=== PATIENT | male | born 1965 | race African-American/Black ===

== ENCOUNTER 2024-09-18 01:12 | Day surgery (SDC) | payer OTHER, SELFPAY ==
[2024-09-12 15:04] VITALS: BMI 32.1
[2024-09-18 08:06] VITALS: BP 109/90; PULSE 84; RESP 18; TEMP 36.3; O2SAT 100
[2024-09-18] MEDS: LACTATED RINGERS 1,000 ML 150 ML IV CONT (08:15)
[2024-09-18 08:23] LABS: Glucose Point of Care 67 mg/dl (65-105)
[2024-09-18] MEDS: DEXTROSE 50% 25 GM/50 ML SYRINGE IV PUSH (08:25)
--- NOTE | 2024-09-18 08:34 | P.PNAN_ITS ---
Anes - Initial Pre Proc Eval Procedure: Operation Date: 09/18/24 09:00 Proposed Procedures p Colonoscopy - Luis Villalobos DO Date/Time: 09/18/24 08:34 Surgeon: Luis Villalobos DO Pre Op Diagnosis: + FIT Patient Data Age: 59 Gender: M Height: 1.7 m Weight: 88.6 kg Last Vital Signs Temp 36.3 C L 09/18/24 08:06 Pulse 84 09/18/24 08:06 Resp 18 09/18/24 08:06 BP 109/90 09/18/24 08:06 Pulse Ox 100 09/18/24 08:06 O2 Del Method Room Air 09/18/24 08:06 Allergies Allergy/AdvReac Type Severity Reaction Status Date / Time No Known Allergies Allergy Verified 09/18/24 08:05 Home Medications ?Medication ?Instructions ?Recorded ?Confirmed ?Type amlodipine 10 mg tablet 10 mg PO DAILY 09/12/24 09/18/24 History aspirin 81 mg tablet 81 mg PO DAILY 09/12/24 09/18/24 History chlorthalidone 25 mg tablet 25 mg PO DAILY 09/12/24 09/18/24 History empagliflozin 10 mg tablet 10 mg PO DAILY 09/12/24 09/18/24 History lisinopril 20 mg tablet 20 mg PO DAILY 09/12/24 09/18/24 History Laboratory Tests 09/18/24 08:14 POC Capillary Glucose 67 mg/dl (65-105) Patient hx anesthesia problems: none Family hx anesthesia problems: none Results Review: All pre-operative results and documents have been reviewed as part of the pre- operative evaluation. [facility] Past Medical History Medical History (Updated 09/18/24 @ 08:35 by Dinesh Mullins MD) Obesity CKD (chronic kidney disease) Diabetes Social History Social History Smoking status: Unknown if ever smoked Alcohol intake: unknown Substance use: unknown Living arrangements: incarcerated Anes - Eval Final PreProcedure Day of Procedure 09/18/24 08:34 Patient weight: obese Heart: regular rate and rhythm Lungs: clear to auscultation Airway: Mallampati scale class II Neurological: alert and oriented Last oral intake: >/= 8 hours ASA classification: III Emergent: no Anesthetic plan: proceed Anesthesia type and monitoring: general GIVS and standard monitoring Results Review: All pre-operative results and documents have been reviewed as part of the pre- operative evaluation. Informed Consent: The patient's anesthetic plan and its attendant risks and benefits were discussed with the patient/family/POA. Questions were solicited and answers provided to the satisfaction of the patient/family/POA.
--- NOTE | 2024-09-18 08:47 | P.HP_ITS ---
H&P: HPI History of Present Illness Date/Time: 09/18/24 08:47 Chief Complaint: positive fit test Narrative: this is a 59-year-old man who presents for colonoscopy. He recently had a positive fit test at [facility]. He has never had a colonoscopy before. He denies any hematochezia or melena. He denies family history of colon cancer. Review of Systems Review of Systems: All systems reviewed & are unremarkable except as noted in HPI and below Constitutional: Constitutional: Denies chills, Denies fever(s), Denies headache(s) and Denies weight loss Eyes: Eyes: Denies change in vision ENT: Denies dizziness, Denies headache(s), Denies neck mass and Denies throat swelling Cardiovascular: Cardiovascular: Denies chest pain, Denies lightheadedness and Denies dyspnea Respiratory: Respiratory: Denies cough, Denies dyspnea and Denies wheezing Gastrointestinal: Gastrointestinal: Denies abdominal pain, Denies change in bowel habits, Denies nausea and Denies vomiting Genitourinary: Genitourinary: Denies hematuria and Denies dysuria Musculoskeletal: Musculoskeletal: Reports as per HPI Integumentary/Breasts: Skin/Breast: Reports as per HPI Neurologic: Denies dizziness and Denies headache(s) Allergic/Immunologic: Allergic/Immunologic: Denies throat swelling and Denies wheezing [facility] Past Medical History Medical History (Updated 09/18/24 @ 08:48 by Luis Villalobos DO) Obesity CKD (chronic kidney disease) Diabetes Social History Social History Smoking status: Unknown if ever smoked Alcohol intake: unknown Substance use: unknown Living arrangements: incarcerated Meds Home Medications and Allergies Home Medications ?Medication ?Instructions ?Recorded ?Confirmed ?Type amlodipine 10 mg tablet 10 mg PO DAILY 09/12/24 09/18/24 History aspirin 81 mg tablet 81 mg PO DAILY 09/12/24 09/18/24 History chlorthalidone 25 mg tablet 25 mg PO DAILY 09/12/24 09/18/24 History empagliflozin 10 mg tablet 10 mg PO DAILY 09/12/24 09/18/24 History lisinopril 20 mg tablet 20 mg PO DAILY 09/12/24 09/18/24 History Allergies Allergy/AdvReac Type Severity Reaction Status Date / Time No Known Allergies Allergy Verified 09/18/24 08:05 Vital Signs Vital Signs - 24 hr 09/18/24 08:06 Temperature 97.4 F L Pulse Rate 84 Respiratory Rate 18 Blood Pressure 109/90 Pulse Oximetry 100 Oxygen Delivery Room Air Exam Const: General: no acute distress and alert Orientation/consciousness: patient oriented x3 HENMT: Head: normocephalic and atraumatic Ears: hearing grossly normal bilaterally Face/Nose/Sinus: Normal nares present Mouth: Yes Normal oral and palatal mucosa present Eyes: Periorbital: periorbital findings normal Sclera: sclerae normal EOM: EOMs intact bilaterally Neck: Neck: normal visual inspection, no lymphadenopathy and trachea midline Chest: Chest palpation & inspection: normal inspection of the chest Resp: Effort & Inspection: normal respiratory effort Auscultation: clear to auscultation bilaterally Cardio: Jugular venous distension: no JVD Rate: regular rate Rhythm: regular rhythm Heart sounds: S1 normal heart sound present and S2 normal heart sound present Peripheral pulses: Peripheral pulses 2+ throughout GI: Inspection: normal to inspection GI Palp: Yes Soft to palpation, No Tenderness to palpation present (GI), No Guarding due to palpation present (GI) and No Rebound tenderness present Percussion: Yes normal to percussion Auscultation: normal bowel sounds : General: Yes no CVA tenderness Back/Spine/Pelvis: Back: no CVA tenderness Neuro: General: patient oriented x3, no focal motor deficits and CN's II-XI intact bilaterally Cognition (Neuro): normal cognition Speech: normal speech Motor exam (neuro): 5/5 motor strength present throughout Extrem: General: capillary refill normal and no clubbing, cyanosis or edema Assessment and Plan Assessment and plan (1) Positive FIT (fecal immunochemical test): Code(s): R19.5 - Other fecal abnormalities Status: Acute Assessment and Plan: I have recommended colonoscopy. I have discussed the procedure, risks, benefits, and alternatives. Questions were answered. Patient is agreeable to proceed.
[2024-09-18 08:49] LABS: Glucose Point of Care 100 mg/dl (65-105)
[2024-09-18 09:15] VITALS: BP 114/74; PULSE 78; RESP 15; O2SAT 100
[2024-09-18 09:25] VITALS: BP 115/80; PULSE 80; RESP 14; O2SAT 99
[2024-09-18 09:35] VITALS: BP 128/76; PULSE 92; RESP 26; O2SAT 98
--- NOTE | 2024-09-18 09:51 | SUR.PHASEII ---
PENITENTIARY GUARDS PRESENT AT BEDSIDE ENTIRE VISIT; [facility] CALLED TO ACCOMPANY PATIENT AND PENITENTIARY GUARDS TO VEHICLE. PATIENT WITH ANKLE METAL CUFFS DURING POST-OP STAY; WRIST AND ANKLE CUFFS INTACT EN ROUTE TO VEHICLE.
== END 2024-09-18 09:50 | disposition home or self-care (01) ==
PROVIDERS: Visit Provider Surgery
PROC: 0DJD8ZZ Inspection of Lower Intestinal Tract, Via Natural or Artificial Opening Endoscopic (ICD-10-PCS; CPT 45378; principal; 2024-09-18 09:00)
DX: R19.5 Other fecal abnormalities (principal); K57.30 Diverticulosis of large intestine without perforation or abscess without bleeding; E11.22 Type 2 diabetes mellitus with diabetic chronic kidney disease; N18.9 Chronic kidney disease, unspecified; E66.9 Obesity, unspecified; Z68.30 Body mass index [BMI] 30.0-30.9, adult
CPT/HCPCS: 45378; 82948; J2704; J7120